=== PATIENT | female | born 1985 | race Caucasian/White ===

== ENCOUNTER 2016-11-22 16:13 | Emergency (ER) | payer OTHER ==
[2016-11-22 16:24] VITALS: BP 108/76; PULSE 67; RESP 18; TEMP 99; O2SAT 99
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
== END 2016-11-22 18:35 | disposition home or self-care (01) ==
LOC: H.ER 16:13
DX: M54.5 Low back pain (principal); V49.50XA Passenger injured in collision with unspecified motor vehicles in traffic accident, initial encounter; Y92.410 Unspecified street and highway as the place of occurrence of the external cause

== ENCOUNTER 2018-06-12 14:17 | Emergency (ER) | payer OTHER ==
[2018-06-12 14:32] VITALS: RESP 18; O2SAT 100
--- NOTE | 2018-06-12 15:03 | ED PDOC ---
HPI: Chest Pain Time Seen by Provider: 06/12/18 14:38 Chief Complaint (Nursing): Chest Pain Chief Complaint (Provider): Chest Pain History Per: Patient History/Exam Limitations: no limitations Onset/Duration Of Symptoms: Days (x3) Current Symptoms Are (Timing): Still Present Additional Complaint(s): 32 y/o female with no significant PMHx presents to the ED complaining of left sided chest pain, onset three days ago. Patient reports pain is non-radiating and worse with inspiration. Otherwise, patient denies shortness of breath, cough and fever. PMD: none provided Past Medical History Reviewed: Historical Data, Nursing Documentation, Vital Signs Vital Signs: Last Vital Signs Temp 98.3 F 06/12/18 14:29 Pulse 79 06/12/18 14:29 Resp 18 06/12/18 14:29 BP 124/81 06/12/18 14:29 Pulse Ox 100 06/12/18 14:29 - Medical History PMH: No Chronic Diseases Denies: Chronic Kidney Disease - Surgical History Surgical History: No Surg Hx - Family History Family History: States: Unknown Family Hx - Home Medications Home Medications: Ambulatory Orders Medication Instructions Recorded Ibuprofen [Motrin] 600 mg PO Q6H PRN #20 tab 11/22/16 Naproxen [Naprosyn] 500 mg PO Q12H #20 tab 06/12/18 - Allergies Allergies/Adverse Reactions: Allergies Allergy/AdvReac Type Severity Reaction Status Date / Time No Known Allergies Allergy Verified 06/12/18 14:29 Review of Systems ROS Statement: Except As Marked, All Systems Reviewed And Found Negative Constitutional: Negative for: Fever Cardiovascular: Positive for: Chest Pain Respiratory: Negative for: Cough, Shortness of Breath Physical Exam - Reviewed Nursing Documentation Reviewed: Yes Vital Signs Reviewed: Yes - Physical Exam Appears: Positive for: No Acute Distress Head Exam: Positive for: ATRAUMATIC, NORMOCEPHALIC Skin: Positive for: Normal Color, Warm, Dry Eye Exam: Positive for: Normal appearance, EOMI, PERRL Neck: Positive for: Normal, Painless ROM, Supple Cardiovascular/Chest: Positive for: Regular Rate, Rhythm. Negative for: Chest Non Tender (Tenderness to palpation of the anterior chest wall. ), Murmur Respiratory: Positive for: Normal Breath Sounds. Negative for: Respiratory Distress Gastrointestinal/Abdominal: Positive for: Normal Exam, Soft. Negative for: Tenderness Back: Positive for: Normal Inspection. Negative for: L CVA Tenderness, R CVA Tenderness, Vertebral Tenderness Extremity: Positive for: Normal ROM. Negative for: Pedal Edema, Deformity Neurologic/Psych: Positive for: Alert, Oriented. Negative for: Motor/Sensory Deficits - ECG ECG Rhythm: Positive for: Sinus Rhythm. Negative for: ST/T Changes Rate: 80 O2 Sat by Pulse Oximetry: 100 (RA) Pulse Ox Interpretation: Normal Medical Decision Making Medical Decision Making: Time: 1450 A/P -- Chest pain reproducible -- Given age and lack of risk factors, pain is unlikely of cardiac ideology. Will obtain CXR and Troponins to rule out ACS -- Troponin I -- ED Urine -- CXR Two Views Scribe Attestation: Documented by Aislinn Herrera, acting as a scribe for Wayne Walters MD. Provider Scribe Attestation: All medical record entries made by the Scribe were at my direction and personally dictated by me. I have reviewed the chart and agree that the record accurately reflects my personal performance of the history, physical exam, medical decision making, and the department course for this patient. I have also personally directed, reviewed, and agree with the discharge instructions and disposition. Disposition - Clinical Impression Clinical Impression: Chest wall pain - Patient ED Disposition Is Patient to be Admitted: No Counseled Patient/Family Regarding: Studies Performed, Diagnosis, Need For Followup, Rx Given - Disposition Referrals: [facility] [Outside] Disposition: Routine/Home Disposition Time: 16:24 Condition: FAIR Prescriptions: Naproxen [Naprosyn] 500 mg PO Q12H #20 tab Instructions: Costochondritis Forms: [employer] ([place]) Print Language: CENTRAL AFRICAN
--- NOTE | 2018-06-12 16:54 | RAD ---
Date of service: 06/12/2018 HISTORY: chest pain COMPARISON: No prior. TECHNIQUE: Chest PA and lateral FINDINGS: LUNGS: No active pulmonary disease. PLEURA: No significant pleural effusion identified. No pneumothorax apparent. CARDIOVASCULAR: No aortic atherosclerotic calcification present. Normal cardiac size. No pulmonary vascular congestion. OSSEOUS STRUCTURES: No significant abnormalities. VISUALIZED UPPER ABDOMEN: Normal. OTHER FINDINGS: None. IMPRESSION: No active disease.
[2018-06-12 17:06] VITALS: BP 112/62; PULSE 66; TEMP 98.5
== END 2018-06-12 17:00 | disposition home or self-care (01) ==
LOC: H.ER 14:17
DX: R07.89 Other chest pain (principal)